=== PATIENT | male | born 1985 | race Caucasian/White ===

== ENCOUNTER 2024-04-03 09:49 | Emergency (ER) | payer BC, SELFPAY ==
[2024-04-03 09:55] VITALS: BP 111/64; PULSE 66; RESP 18; TEMP 36.6; O2SAT 93; BMI 25.2
[2024-04-03] MEDS: KETOROLAC INJ 30 MG/ML VIAL 15 MG IVP (10:13)
[2024-04-03] MEDS: ONDANSETRON INJ 2 MG/ML INJ 2 ML 4 MG IV (10:13)
[2024-04-03] MEDS: HYDROmorphone INJ 2 MG/ML VIAL 1 MG IVP (10:14)
[2024-04-03] MEDS: DIAZEPAM INJ 5 MG/ML VIAL 2 ML IVP (10:40)
--- NOTE | 2024-04-03 11:00 | PC.NURSE ---
dr reich notified of patient complain of pain, he is not able to sit up on a chair
--- NOTE | 2024-04-03 11:12 | EDNOTE_ITS ---
ED Back Injury Pain RME/HPI General Chief Complaint: Extremity Injury, Lower Stated Complaint: BACK PAIN Time Seen by Provider: 04/03/24 09:49 Arrival date/time: 04/03/24 09:49 RME / HPI RME / HPI Narrative: DR. MCDOWELL MAIN ED EVALUATION: 39-year-old male patient presenting to the emergency room via private vehicle complaining of acute low back pain. Patient states he was bent over coughing and experienced sudden acute sharp low back pain with mild radiation to the thighs posteriorly. No bowel or bladder incontinence. No dysuria, hematuria. No saddle numbness or tingling. No significant trauma. Able to ambulate with difficulty secondary to pain. Denies weakness. Related Data Previous Rx's ?Medication ?Instructions ?Recorded cyclobenzaprine 5 mg tablet 5 mg PO TID PRN muscle spasm #14 04/03/24 tabs ibuprofen 600 mg tablet 600 mg PO Q6H PRN pain #30 tabs 04/03/24 lidocaine 5 % topical patch 1 patch topical QDAY #15 ea 04/03/24 Allergies Allergy/AdvReac Type Severity Reaction Status Date / Time No Known Allergies Allergy Verified 04/03/24 09:54 Review of Systems Review of Systems Systems Reviewed: All systems reviewed, normal except as documented Narrative Review of Systems: GEN: No fever, no chills, no weight loss EYES: No discharge, no visual changes, no pain HEENT: No ear pain, no congestion, no sore throat PULM: No shortness of breath, + cough CV: No chest pain, no dyspnea on exertion, no palpitations GI: No nausea, no vomiting, no diarrhea, no pain, no constipation : No frequency, no urgency and no dysuria MUSC/SKEL: No joint pain, + acute low back pain SKIN: No rash PSYCH: No hallucinations, no depression HEME/LYMPH: No easy bleeding or bruising tendencies NEURO: No weakness, no headache Past Medical History Past Medical History CARDIAC: Negative Congestive Heart Failure RESPIRATORY: Negative Chronic Obstructive Pulmonary Disease (COPD) GENITOURINARY: Negative Renal Disease ENDOCRINE: Negative Diabetes Mellitus Type 1 or Diabetes Mellitus Type 2 Family History FAMILY HISTORY: Negative Family Cardiac Disorders Social History SMOKING STATUS: Never smoker ED Exam Narrative Physical exam: GENERAL APPEARANCE: alert and oriented x 4, well-developed, well-nourished, no acute distress HEENT: Normocephalic, atraumatic LUNGS: No increased work of breathing, no respiratory distress HEART: Good peripheral perfusion ABDOMEN: non distended : Rectal exam deferred EXTREMITIES: atraumatic; no edema BACK: Localized tenderness lumbar area of the upper sacrum NEUROLOGIC: awake; alert and oriented x4; cranial nerves II-XII grossly intact; sensation intact; strength intact 5/5 (plantar flexion (S1), dorsiflexion (L5), knee extension, quadriceps (L4, L3), knee flexion, hamstrings), ; no pain radiation on straight leg bilaterally; no pain or radiation on stretch of the Achilles PSYCHIATRIC: appropriate mood and affect SKIN: warm, dry, normal color; no rashes Course Quality Measures none Orders Category Date Time Status CBC Stat Lab 04/03/24 11:35 Completed CMP [Comprehensive Metabolic Panel] Stat Lab 04/03/24 11:35 Completed Diazepam Inj [Valium Inj] Med 04/03/24 10:27 Discontinued 10 mg .ROUTE .STK-MED ONE Diazepam Inj [Valium Inj] Med 04/03/24 10:30 Discontinued 5 mg IVP X1 ONE Diazepam [Valium] Med 04/03/24 11:51 Discontinued 5 mg PO X1 ONE HYDROcodone*/APAP 5/325 [[place] 5/325] Med 04/03/24 11:51 Discontinued 1 tab PO X1 ONE HYDROcodone*/APAP 5/325 [[place] 5/325] Med 04/03/24 12:55 Discontinued 1 tab PO X1 ONE HYDROcodone/APAP 10/325 [[place] 10/325] Med 04/03/24 14:05 Discontinued 1 tab PO X1 ONE HYDROmorphone INJ [Dilaudid Inj] Med 04/03/24 09:49 Discontinued 1 mg IVP X1 ONE Ketorolac Inj [Toradol Inj] Med 04/03/24 09:49 Discontinued 15 mg IVP X1 ONE Lidocaine 5% Patch Med 04/03/24 14:08 Discontinued 1 patch TOP X1 ONE Ondansetron Inj [Zofran Inj] Med 04/03/24 09:49 Discontinued 4 mg IV X1 ONE Ondansetron Odt [Zofran Odt] Med 04/03/24 14:06 Discontinued 4 mg PO X1 ONE Reevaluation(s) Reevaluation #1: Patient remains clinically stable throughout the emergency department visit. Re- assessment at the time of disposition demonstrates that the patient is in no acute distress. We reviewed all the results, analysis, and treatment plans. Patient is amenable to discharge. Strict return precautions were outlined. Patient was discharged in stable condition. Time: 11:50 Vital Signs Vital signs: Vital Signs Temperature 98 F 04/03/24 09:55 Pulse Rate 66 04/03/24 09:55 Respiratory Rate 18 04/03/24 09:55 Blood Pressure 111/64 04/03/24 09:55 Pulse Oximetry (%) 93 L 04/03/24 09:55 Oxygen Delivery Method Room Air 04/03/24 09:55 Back Pain / Injury MDM Narrative MDM Narrative:: IAlfreda am scribing for and in the presence of Dr. Mcdowell. Patient data External records reviewed:: None (no previous visits) Clinical information provided by:: patient Social determinants that could affect healthcare access:: none Patient has the following chronic illnesses:: Denies any PMHx, surgeries, daily medications, or known allergies. How is presenting disease/condition affected by chronic disease/condition?: no chronic disease Evaluation data The following diagnostics were reviewed and interpreted by me:: lab results Lab and/or radiology exams considered but not ordered:: none Interpretation Summary: No acute findings. Medications / Prescriptions Medications or Prescriptions considered but not ordered:: none Medication administrations:: Medication Administration History Discontinued Medications Hydrocodone Bitart/Acetaminophen (Hydrocodone/Apap 5/325 Tablet) 1 tab PO X1 ONE Stop: 04/03/24 11:52 Last Admin: 04/03/24 11:59 Dose: 1 tab Documented By: TAMMY Hydrocodone Bitart/Acetaminophen (Hydrocodone/Apap 5/325 Tablet) 1 tab PO X1 ONE Stop: 04/03/24 12:56 Last Admin: 04/03/24 13:04 Dose: 1 tab Documented By: TAMMY Hydrocodone Bitart/Acetaminophen (Hydrocodone/Apap 10/325 Tab) 1 tab PO X1 ONE Stop: 04/03/24 14:06 Last Admin: 04/03/24 14:29 Dose: Not Given Documented By: TAMMY Non-Admin Reason: Patient Refused Diazepam (Diazepam Inj 5 Mg/Ml Vial 2 Ml) 5 mg IVP X1 ONE Stop: 04/03/24 10:31 Last Admin: 04/03/24 10:40 Dose: 5 mg Documented By: TAMMY Diazepam (Diazepam Inj 5 Mg/Ml Vial 2 Ml) Confirm Administered Dose 10 mg .ROUTE .STK-MED ONE Stop: 04/03/24 10:28 Last Admin: 04/03/24 10:35 Dose: Not Given Documented By: TAMMY Non-Admin Reason: Override Medication Diazepam (Diazepam 5 Mg Tablet) 5 mg PO X1 ONE Stop: 04/03/24 11:52 Last Admin: 04/03/24 11:59 Dose: 5 mg Documented By: TAMMY Hydromorphone HCl (Hydromorphone Inj 2 Mg/Ml Vial) 1 mg IVP X1 ONE Stop: 04/03/24 09:50 Last Admin: 04/03/24 10:14 Dose: 1 mg Documented By: ER Ketorolac Tromethamine (Ketorolac Inj 30 Mg/Ml Vial) 15 mg IVP X1 ONE Stop: 04/03/24 09:50 Last Admin: 04/03/24 10:13 Dose: 15 mg Documented By: ER Lidocaine (Lidocaine 5% 1 Patch) 1 patch TOP X1 ONE Stop: 04/03/24 14:09 Last Admin: 04/03/24 14:26 Dose: 1 patch Documented By: TAMMY Ondansetron HCl (Ondansetron Inj 2 Mg/Ml Inj 2 Ml) 4 mg IV X1 ONE Stop: 04/03/24 09:50 Last Admin: 04/03/24 10:13 Dose: 4 mg Documented By: ER Ondansetron HCl (Ondansetron Odt 4 Mg Tabrap) 4 mg PO X1 ONE; Protocol Stop: 04/03/24 14:07 Last Admin: 04/03/24 14:29 Dose: Not Given Documented By: TAMMY Non-Admin Reason: Patient Refused see above Consultations Consultation(s) initiated? (list below): No Diagnosis Differential diagnosis back pain/injury: sciatica, strain of lumbar region and discitis Most likely diagnosis given after review of the tests above:: Acute low back pain Low back strain Admission Indicated Admission indicated?: not indicated Admission Request Was there a request for admission?: No Disposition Plan Disposition Plan: Discharge Discharge Attestation Discharge Attestation: The patient and all family members were given an opportunity to ask questions and understood the discharge instructions. Discharge instructions specifically effects, indications for sooner follow up or return to the emergency department, and the expected course of current diagnosis. Patient condition: Stable Discharge Plan Plan Patient Disposition: HOME (Self Care) Prescriptions/Referrals Prescriptions/Med Rec: New ibuprofen 600 mg tablet 600 mg PO Q6H PRN (Reason: pain) Qty: 30 0RF cyclobenzaprine 5 mg tablet 5 mg PO TID PRN (Reason: muscle spasm) Qty: 14 0RF lidocaine 5 % adhesive patch,medicated 1 patch topical QDAY Qty: 15 0RF Rx Instructions: leave on most painful area for up to 12 hrs Referrals: Adelfo Arroyo MD [Primary Care Provider] - In 1 week Problem List Clinical Impression: Acute low back pain, Low back strain Patient/Caregiver Discharge Instructions Education Materials: ED Back Sprain/Strain Print Language: Wallisian Stand Alone Forms: Judith Award Info., Patient Portal Info Letter
[2024-04-03 11:55] VITALS: BP 114/61; PULSE 62; RESP 18; TEMP 36.6; O2SAT 96
[2024-04-03] MEDS: DIAZEPAM 5 MG TABLET PO (11:59)
[2024-04-03] MEDS: HYDROcodone/APAP 5/325 TABLET 1 TAB PO ×2 (11:59→13:04)
[2024-04-03 12:11] LABS: Basophils # (Auto) 0.1 Thou/mm3 (0.0-0.2); Basophils % (Auto) 1 % (0-2.5); Eosinophils % (Auto) 1 % (0-10); Hematocrit 36.3 % (41.0-53.0); Hemoglobin 12.8 g/dL (13.5-16.0); Immature Granulocytes % (Auto) 0 % (0-0); Immature Granulocytes Auto 0.01 Thou/mm3 (0.00-0.00); Lymphocytes # (Auto) 0.9 Thou/mm3 (1.0-4.8); Lymphocytes % (Auto) 19 % (10-50); Mean Corpuscular HGB Conc 35.3 g/dl (31.0-37.0); Mean Corpuscular Hemoglobin 29.5 pg (25.0-35.0); Mean Corpuscular Volume 84 fL (80-100); Monocytes # (Auto) 0.7 Thou/mm3 (0.0-0.8); Monocytes % (Auto) 15 % (0-12); Neutrophils # (Auto) 2.8 Thou/mm3 (1.8-7.7); Neutrophils % (Auto) 64 % (37-80); Nucleated Red Blood Cell % 0 /100 WBC (0); Platelet Count 181 Thou/mm3 (140-440); Red Blood Count 4.34 Miln/mm3 (4.50-5.90); White Blood Count 4.4 Thou/mm3 (3.8-10.6)
[2024-04-03 12:29] LABS: Alanine Aminotransferase 31 U/L (10-49); Albumin, Serum 4.6 gm/dL (3.5-5.0); Albumin/Globulin Ratio 1.8 (1.2-2.2); Alkaline Phosphatase 63 U/L (46-116); Anion Gap 2 (7-16); Aspartate Amino Transferase 17 U/L (0-34); BUN/Creatinine Ratio 13 Ratio (12-20); Bilirubin,Total 0.4 mg/dL (0.3-1.2); Blood Urea Nitrogen 13 mg/dL (9-23); Calcium 9.2 mg/dL (8.3-10.6); Calcium (Corrected) 9.2 mg/dL (8.5-10.1); Carbon Dioxide 25.9 mMol/L (20.0-31.0); Chloride 107 mMol/L (98-107); Estimated Creatinine Clearance 105.6 mL/min (>60); Globulin 2.6 gm/dL (2.3-3.5); Glucose 99 mg/dL (74-106); Osmolality,Calculated 270 (275-295); Potassium 4.1 mMol/L (3.4-5.1); Sodium 135 mMol/L (136-145); Total Protein 7.2 gm/dL (5.7-8.2); eGFR > 60 See Note
[2024-04-03 13:00] VITALS: BP 110/60; PULSE 64; RESP 19; O2SAT 96
--- NOTE | 2024-04-03 13:15 | PC.NURSE ---
patient was able to walk, he still complaining of back pain unalble to sit on chair, warm pack applied and pain medication given for a pain level of 9/10
[2024-04-03] MEDS: LIDOCAINE 5% 1 PATCH TOP (14:26)
--- NOTE | 2024-04-03 14:58 | PC.NURSE ---
dr reich walked patient to the car, he is hurting no his back when bending to sit down
== END 2024-04-03 15:00 | disposition home or self-care (01) ==
PROVIDERS: Emergency Provider Emergency Medicine
DX: S39.012A Strain of muscle, fascia and tendon of lower back, initial encounter (principal); X58.XXXA Exposure to other specified factors, initial encounter
CPT/HCPCS: 36415; 80053; 81001; 85025; 96374; 96375; 99284; J1885; J2405; J3360; J3490; A9270